=== PATIENT | female | born 1955 | race Caucasian/White ===

== ENCOUNTER 2018-11-10 18:28 | Emergency (ER) | payer MEDICARE, OTHER ==
[~2018-11-10] VITALS: Ht 172.7 cm; Wt 114.5 kg
[2018-11-10] MEDS ORDERED: BACTRIM DS1 TAB PO (19:30)
[2018-11-10] MEDS ORDERED: KEFLEX500 M1 PO (19:30)
[2018-11-10 19:45] VITALS: BP 160/78
== END 2018-11-10 19:45 | disposition home or self-care (01) ==
LOC: ED 18:28
DX: L02.212 Cutaneous abscess of back [any part, except buttock and flank] (principal); L03.312 Cellulitis of back [any part except buttock and flank]; E11.9 Type 2 diabetes mellitus without complications